=== PATIENT | male | born 1980 | race Caucasian/White ===

== ENCOUNTER 2017-02-19 17:58 | Emergency (ER) | payer SELFPAY ==
[2017-02-19] MEDS: IBUPROFEN 600 MG TAB PO (18:24)
== END 2017-02-19 21:34 | disposition home or self-care (01) ==
LOC: FTE 17:58
DX: S62.663A Nondisplaced fracture of distal phalanx of left middle finger, initial encounter for closed fracture (principal)
CPT/HCPCS: 73130; 73130-LT; 99283-25